=== PATIENT | female | born 1950 | race Caucasian/White ===

== ENCOUNTER 2017-03-25 05:32 | Inpatient (IN) | payer MEDICARE, BC ==
[~2017-03-25] VITALS: Ht 172.7 cm; Wt 100.6 kg
[2017-03-25] VITALS (26 sets, daily range): BP systolic 120–178; BP diastolic 20–81; PULSE 84–104; RESP 9–20; Ht 172.7 cm; Wt 100.6 kg
[~2017-03-25 05:32] MED LIST: ALPH200T2 PO; ASCO500C7 PO; BIOT300T6 PO; BIOT800T PO; BORON; CHOL400T29 PO; CYAN500T46 PO; FOLATE; MOLYBDENUM; OMEG-135 PO; PYRI50TA80 PO; THI100 PO; UBID100C24 PO; VALA500T32 PO; VITA1CAP38 PO; VITA2500 PO; VITAMIN B2; VITAMIN B3; ZINC15TA2 PO; ZINC50TA2 PO; [UNRECOGNIZED DRUG - CODE]; [UNRECOGNIZED DRUG - CODE] PO; [UNRECOGNIZED DRUG - CODE] PO; [UNRECOGNIZED DRUG - CODE] PO; [UNRECOGNIZED DRUG - CODE] PO; [UNRECOGNIZED DRUG - CODE] PO; [UNRECOGNIZED DRUG - OTHER]; [UNRECOGNIZED DRUG - OTHER]; [UNRECOGNIZED DRUG - OTHER]; [UNRECOGNIZED DRUG - OTHER]; [UNRECOGNIZED DRUG - OTHER]; [UNRECOGNIZED DRUG - REMARK]
[2017-03-25] MEDS ORDERED: ROCURONIUM 50 MG INJ ONE (06:20)
[2017-03-25] MEDS ORDERED: GLYCOPYRROLATE 0.4 MG INJ ONE (06:20)
[2017-03-25] MEDS ORDERED: PROPOFOL 20 ML ONE (06:20)
[2017-03-25] MEDS ORDERED: LIDOCAINE 2% (SDV) 5 ML INJ ONE (06:20)
[2017-03-25] MEDS ORDERED: NEOSTIGMINE 3 MG/3 ML SYRINGE ONE (06:20)
[2017-03-25] MEDS ORDERED: MIDAZOLAM 1 MG/ML 2 ML INJ ONE (06:25)
[2017-03-25] MEDS ORDERED: FENTAnyl 50 MCG/ML VIAL ONE (06:25)
[2017-03-25] MEDS ORDERED: ONDANSETRON 4 MG INJ ONE (06:25)
[2017-03-25] MEDS ORDERED: DEXAMETHASONE 4 MG/ML 1 ML INJ ONE (06:25)
[2017-03-25] MEDS ORDERED: ONDANSETRON 4 MG INJ IV PRN ×2 (06:30→09:30)
[2017-03-25] MEDS ORDERED: LABETALOL HCL 20MG INJ IV PRN (06:30)
[2017-03-25] MEDS ORDERED: CEFAZOLIN 2 GM/50 ML (PMX) 50 ML IVPB SCH (06:30)
[2017-03-25] MEDS ORDERED: OXYCODONE/ACETAMINOPHEN (5/325) TAB PO PRN ×2 (06:30)
[2017-03-25] MEDS ORDERED: ATROPINE 1 MG/10 ML SYRINGE IV PRN (06:30)
[2017-03-25] MEDS ORDERED: EPHEDrine SULFATE 50 MG/5 ML SYG IV PRN (06:30)
[2017-03-25] MEDS ORDERED: LACTATED RINGER'S 1,000 ML IV* SCH (06:30)
[2017-03-25] MEDS ORDERED: MEPERIDINE 25 MG INJ IV PRN (06:30)
[2017-03-25] MEDS ORDERED: HYDROmorphONE (0.2 MG/ML) 10ML SYG IV PRN ×3 (06:30)
[2017-03-25] MEDS ORDERED: DIPHENHYDRAMINE 50 MG INJ IV PRN (06:30)
[2017-03-25] MEDS ORDERED: morphine (1 MG/ML) 10ML SYRINGE IV PRN ×3 (06:30)
[2017-03-25] MEDS ORDERED: MIDAZOLAM 1 MG/ML 2 ML INJ IV PRN (06:30)
[2017-03-25] MEDS ORDERED: hydrALAzine 20 MG INJ IV PRN (06:30)
[2017-03-25] MEDS ORDERED: FENTAnyl 50 MCG/ML VIAL IV PRN (06:30)
[2017-03-25] MEDS ORDERED: CEFAZOLIN 2 GM/50 ML (PMX) 50 ML IVPB ONE ×2 (06:43→06:45)
--- NOTE | 2017-03-25 06:51 | HPN ---
Date/Time of Note Date/Time of Note DATE: 03/25/17 TIME: 06:50 Interval H&P Admission Note Pt. seen H&P reviewed: No system changes BRITNI RUCKER MD Mar 25, 2017 06:51
[2017-03-25] MEDS ORDERED: HYDR5TAB2 PO (07:21)
[2017-03-25] MEDS ORDERED: LISI10TA2 PO (07:21)
[2017-03-25] MEDS ORDERED: [UNRECOGNIZED DRUG - OTHER] (07:21)
[2017-03-25] MEDS ORDERED: PRAS25CA6 PO (07:21)
[2017-03-25] MEDS ORDERED: VALA500T PO (07:21)
[2017-03-25] MEDS ORDERED: [UNRECOGNIZED DRUG - OTHER] PO (07:21)
[2017-03-25] MEDS ORDERED: THYR97.5 PO (07:21)
[2017-03-25] MEDS ORDERED: PROG100C5 PO (07:21)
[2017-03-25] MEDS ORDERED: CHOL500010 PO (07:24)
[2017-03-25] MEDS ORDERED: BIOT25004 PO (07:24)
[2017-03-25] MEDS ORDERED: MAGN500C PO (07:24)
[2017-03-25] MEDS ORDERED: MULT-88 PO (07:24)
[2017-03-25] MEDS ORDERED: CALC600T5 PO (07:24)
[2017-03-25] MEDS ORDERED: hydrALAzine 20 MG INJ ONE (07:46)
[2017-03-25] MEDS ORDERED: LABETALOL HCL 20MG INJ ONE (07:56)
[2017-03-25] MEDS ORDERED: GELATIN SIZE 100 SPONGE ONE (08:12)
[2017-03-25] MEDS ORDERED: POLYMYXIN/BACITRACIN 1L IRRIG ONE (08:13)
[2017-03-25] MEDS ORDERED: BUPIVACAINE 0.25% (MPF) 30 ML INJ ONE (08:13)
[2017-03-25] MEDS ORDERED: THROMBIN 5000 UNIT VIAL ONE (08:13)
[2017-03-25] MEDS ORDERED: FUROSEMIDE 20 MG INJ ONE (09:04)
[2017-03-25] MEDS ORDERED: FLUMAZENIL 0.5 MG INJ ONE (09:18)
[2017-03-25] MEDS ORDERED: NALOXONE (0.4 MG/ML) INJ IV PRN (09:30)
[2017-03-25] MEDS ORDERED: TRIMETHOBENZAMIDE 100 MG/ML VIAL IM PRN (09:30)
[2017-03-25] MEDS ORDERED: PROCHLORPERAZINE 10 MG TAB PO PRN (09:30)
[2017-03-25] MEDS ORDERED: ZOLPIDEM 5 MG TAB PO PRN (09:30)
[2017-03-25] MEDS ORDERED: DIAZEPAM 5 MG TAB PO PRN (09:30)
[2017-03-25] MEDS ORDERED: DIAZEPAM 5 MG/ML SYG IM PRN (09:30)
[2017-03-25] MEDS ORDERED: NACL 0.9% 3 ML SYG IV SCH (09:30)
[2017-03-25] MEDS ORDERED: ACETAMINOPHEN 325 MG TAB PO PRN (09:30)
[2017-03-25] MEDS ORDERED: HYDROmorphONE 0.2 MG/ML PCA IV SCH (09:30)
[2017-03-25] MEDS ORDERED: AL HYDROX/MG HYDROX/SIMETH 30 ML CUP PO PRN (09:30)
[2017-03-25] MEDS ORDERED: traMADol 50 MG TAB PO PRN (09:30)
[2017-03-25] MEDS ORDERED: DIPHENHYDRAMINE 50 MG CAP PO PRN (09:30)
[2017-03-25] MEDS ORDERED: BETHANECHOL 25 MG TAB PO PRN (09:30)
--- NOTE | 2017-03-25 09:39 | SIPON ---
Date/Time of Note Date/Time of Note DATE: 03/25/17 TIME: 09:35 Operative Report Preoperative Diagnosis Spinal stenosis L4-5 Postoperative Diagnosis Same Operation/Procedure Performed Central decompressive laminectomy at L4 Partial central decompressive laminectomy at L5 (superiorly) Baxano transforaminal root decompression L5 on the left Medial facetectomy and foraminotomy L4-5 bilaterally Cosmetic wound closure (5 cm) Lateral localizing lumbar radiographs (2) Intraoperative nerve monitoring (90 minutes) Surgeon see signature line surgery assistant Christine Collado PA-C Anesthesia: general Estimated blood loss: 10 - 50 ml's Transfusion Required none Specimen Spinous process of L4 Grafts/Implants none Complications none BRITNI RUCKER MD Mar 25, 2017 09:39
[2017-03-25] MEDS ORDERED: HYDROmorphONE 0.2 MG/ML PCA ONE (09:47)
--- NOTE | 2017-03-25 09:49 | RADRPT ---
PROCEDURE: Lumbar spine x-ray intraoperative CLINICAL INDICATION: Lumbar spine surgical procedure TECHNIQUE: Single lateral intraoperative x-ray view of the lumbar spine is available for review. Procedure was performed as a cross-table lateral view on the surgical table. COMPARISON: None available FINDINGS: Posterior approach needles are seen directed at the L3 level and L4-5 disk space level. Single imag e was obtained for localization during the procedure in progress. IMPRESSION: 1. Intraoperative x-rays for localization during lumbar spinal surgical procedure. RPTAT: UU .Johnnie Simms MD, Date Time Electronically viewed and signed by .Johnnie Simms MD, MD on 03/25/2017 09:49 .N/
--- NOTE | 2017-03-25 09:51 | RADRPT ---
PROCEDURE: Lumbar spine x-ray intraoperative CLINICAL INDICATION: Lumbar spine surgical procedure TECHNIQUE: Single lateral intraoperative x-ray view of the lumbar spine is available for review. Procedure was performed as a cross-table lateral view on the surgical table. COMPARISON: None available FINDINGS: There is straightening of normal lumbar lordosis. There is 8 mm anterolisthesis at L4-5. Posterior approach surgical instrument is seen directed at the L4-5 disk space level. Single image was obtained for localization during the procedure in progress. IMPRESSION: 1. Intraoperative x-rays for localization during lumbar spinal surgical procedure. RPTAT: UU .Johnnie Simms MD, Date Time Electronically viewed and signed by .Johnnie Simms MD, MD on 03/25/2017 09:51 .N/
[2017-03-25] MEDS: CEPASTAT LOZENGE MT PRN ×2 (10:43→12:02)
[2017-03-25] MEDS: DEXTROSE 5%-0.45% NACL 1,000 ML IV SCH ×3 (11:16→23:13)
--- NOTE | 2017-03-25 11:35 | OPR ---
DATE OF OPERATION: 03/25/2017 PREOPERATIVE DIAGNOSIS: Lumbar spinal stenosis at L4 (moderate) and foraminal stenosis at L5-S1 on the left. POSTOPERATIVE DIAGNOSIS: Lumbar spinal stenosis at L4 (moderate) and foraminal stenosis at L5-S1 on the left. OPERATION PROCEDURES: 1. Central decompressive laminectomy at L4. 2. Partial central decompression laminectomy at L5 (superiorly). 3. Baxano transforaminal root decompression L5 on the left. 4. Medial facetectomy and foraminotomy, L4-L5 bilaterally. 5. Cosmetic wound closure (5 cm). 6. Lateral localized lumbar radiographs (2). 7. Intraoperative nerve monitoring (90 minutes). SURGEON: Fausto Asif MD PLATE SHEAR OPERATOR: Elena Collado PA-C ANESTHESIA: General endotracheal. ANESTHESIOLOGIST: Kirk Laureano MD ESTIMATED BLOOD LOSS: 25 mL, none replaced. DRAINS: Two medium Hemovac drains employed. COMPLICATIONS: None. PERTINENT HISTORY AND PHYSICAL: This is a 66-year-old female with severe back and lower extremity c omplaints, left greater than right, which have been unrelieved by conservative management. She has undergone a number of diagnostic studies including an MRI of the lumbar spine, which demonstrated a moderate lateral recess stenosis at L4-L5 with foraminal stenosis L5-S1 on the left. Treatment opti ons were discussed with the patient, who elected to proceed with surgery. OPERATIVE FINDINGS AT SURGERY: Moderately severe lateral recess stenosis at L4 and foraminal stenos is at L5-S1 on the left was confirmed. The baseline intraoperative nerve monitoring revealed a decr ease in the L4 potential on the left of 30%, the L4 potential on the right of 40%, the L5 potential on the left of 20%, the L5 potential on the right of 40%, the S1 potential on the left of 40% and th e S1 potential on the right of 20%. These all returned to normal at the completion of surgery. OPERATIVE PROCEDURE: With the patient in supine position after satisfactory induction of general en dotracheal anesthesia by Dr. Laureano, the patient was turned to the prone kneeling position on the [facility] frame. All pressure points were carefully padded. The back was prepped and draped in usual sterile fashion. Athrombic pumps were applied to the legs below the knees to prevent venous stasis during and after the procedure. An indwelling Ryder catheter was also placed preoperatively to faci litate bladder drainage during and after the procedure. Two spinal needles were placed next to what was felt to be the L4 and L5 spinous processes, lateral roentgenogram was taken to confirm anatomic localization. A 5 cm incision then carried out midline over the spinous process of L4 through skin and subcutaneous tissue to the deep fascia. Superficial retractors were placed and hemostasis secu red with electrocautery. Throughout the procedure, copious amounts of antibacterial irrigating solu tion were used to periodically irrigate the wound, 0.25% Marcaine without epinephrine was used to i nfiltrate the skin margins for postoperative analgesia. The fascia was incised in midline with a hot knife and a bilateral subperiosteal dissection carried out at L4-L5. Deep retractors were placed and deep hemostasis secured with electrocautery. A secon d intraoperative radiograph was taken with Sejal clamps placed in what was felt to be the spinous p rocess of L4. This was confirmed with second x-ray. A central decompressive laminectomy at L4 was then carried out using a Ben right-angle bone rongeur, Leksell rongeur, Kerrison punches and cur ettes. Ligamentum flavum was incised with sharp dissection. The operating microscope was moved int o place. A medial facetectomy and foraminotomy at L4-L5 was then carried out using small hand osteo tome, mallet, Kerrison punches and curettes. The L5 root was traced down to the L5-S1 foramen, whic h was moderately to severely stenotic. The Baxano instrumentation was brought onto the field. The Ipsi probe was placed into the L5 foramen, and the guidewire passed in the usual fashion. The neuro monitor was then placed into the foramen to isolate the exiting L5 nerve root. With this having be en assured, a 7.5 mm Baxano rasp was attached to the guidewire and placed into the foramen. Multipl e reciprocations were carried out to enlarge the posterior aspect of the foramen. The instrumentati on was withdrawn. The foramen was flooded with 20 mL of irrigation solution, and hemostasis secured with bipolar electrocautery on low setting. The anesthesiologist was asked to perform a Valsalva maneuver at 40 mmHg and no spinal fluid leakage was noted. The wound was then copiously irrigated with antibacterial irrigating solution and close d over 2 medium Hemovac drains, one below the fascia and one above the fascia using #1 Vicryl Strata fix sutures on the deep paralumbar musculature and deep fascia of back, 2-0 Stratafix sutures on the subcuticular tissue, and a 4-0 Vicryl subcuticular cosmetic closing suture on the skin. Dermabond and sterile compressive dressings were applied. She tolerated the procedure well, was then turned t o the supine position onto her bed and extubated by Dr. Laureano. She was transported to the recovery room in satisfactory condition. At the completion of the procedure, sponge, instrument, and needle counts were all correct. NEED FOR BEVELER: During this spinal surgical procedure, my insurance assistant was used to retrac t and protect the spinal nerves and dural sac. My insurance assistant also employed the suction catheters to e vacuate blood from the surgical field to improve visualization of the neural structures. The assista nt was medically necessary to facilitate the completion of the surgery in a safe and expeditious man ner. State of [place] regulations, as well as hospital bylaws, preclude the use of non-licensed [facility] care personnel such as operating room technicians, to perform these functions. Throughout the procedure, neural monitoring was carried out by [employer], including EMG, SSEP and MEP monitoring of the L3, L4, L5 and S1 nerve roots bilaterally along with spinal cord potentia ls. These were interpreted by a neurologist employed by [employer]. Dictated By: FAUSTO ASIF MD TM/NTS Conf#: [id number] DID#: [id number] CC: JEREMIAH OROZCO MD; ELENA VOSS;*EndCC*
[2017-03-25] MEDS: CEFAZOLIN 1 GM/50 ML (PMX) 50 ML IVPB SCH ×3 (12:05→23:13)
[2017-03-25] MEDS: LISINOPRIL 10 MG TAB PO SCH (14:00)
[2017-03-25] MEDS ORDERED: LISINOPRIL 10 MG TAB PO SCH (14:00)
--- NOTE | 2017-03-25 14:49 | CONS ---
DATE OF ADMISSION: 03/25/2017 DATE OF CONSULTATION: 03/25/2017 TYPE OF CONSULTATION: Medical. Thank you, Dr. Asif, for asking me to participate in medical management of this patient. REASON FOR CONSULTATION: To manage the patient's hypertension, hypothyroidism, and endocrinologic m edications. HISTORY OF PRESENT ILLNESS: This 66-year-old female is now postop a lumbar spine surgery today by Flako Asif. The patient apparently has had low back pain for years. She saw Dr. Asif preopera tively. She has had epidurals in the past and has failed conservative medical management. The shravan ent did have an acute left L5 radiculopathy which was diagnosed preoperatively. She also had a left L4 sensory dysfunction. This was found on electrodiagnostic evaluation preoperatively by Dr. Moore . The patient is now postop a lumbar central decompressive laminectomy at L4, partial central decom pressive laminectomy at L5, a medical facetectomy and foraminotomy at L4-L5 bilaterally. The patie nt is awake and alert. She does complain of severe mouth dryness. PAST MEDICAL HISTORY: Remarkable for the following: Hypertension, hypothyroidism, history of Clost ridium difficile colitis in 10/2016 after taking multiple rounds of antibiotics. History of urinary tract infection in July 2016. 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 PAST SURGICAL HISTORY: Tonsillectomy, tubal ligation and right knee arthroscopy in 2010. FAMILY HISTORY: Father had an TX. SOCIAL HISTORY: She does not drink alcohol, does not smoke. CURRENT MEDICATIONS: Include the followin. Valacyclovir 500 mg a day. 2. Lisinopril 10 mg a day. 3. Calcium carbonate 600 mg a day. 4. Zinc 50 mg a day. 5. Magnesium oxide 500 mg a day. 6. Hydrocortisone 5 mg a day. 7. Progesterone 100 mg at bedtime. 8. Nature-Throid daily. 9. Vitamins Biotin. 10. Vitamin D3. 11. Multivitamin. 12. DHEA. 13. Chromium. 14. Pregnenolone. PHYSICAL EXAMINATION: GENERAL: At this time reveals a well-developed female in no apparent distress. VITAL SIGNS: Temperature 98, pulse of 92, respirations 16, blood pressure 121/62, pulse ox 96% on 2 liter nasal cannula. HEENT: Head normocephalic. Eyes: Extraocular muscles intact. NOSE AND MOUTH: Normal. NECK: Supple. No neck vein distention. LUNGS: Clear to auscultation. HEART: Regular rhythm. No murmurs, gallops or rubs. ABDOMEN: Soft, nontender. EXTREMITIES: No peripheral edema. IMPRESSION: The patient is stable after surgery today. Her blood pressure is normal. She is awake and alert. The patient does have a severely dry mouth. She has been given a lollipop to suck on, which hopefully will help. I will manage her hypertension, hypothyroidism and endocrinologic medica tions. PLAN: 1. Resume some routine medications. 2. Check labs in the morning. 3. Postop lumbar spine surgery protocol. 4. I will follow the patient along with you medically. Dictated By: JEREMIAH OROZCO MD ND/NTS Conf#: [id number] DID#: [id number] CC: KRISTY MOORE MD; BRITNI ASIF MD;*End*
[2017-03-25] MEDS: HYDROCORTISONE 5 MG TAB PO SCH (15:58)
[2017-03-25] MEDS: VALACYCLOVIR 500 MG TAB PO SCH (15:58)
[2017-03-25] MEDS: RANITIDINE 150 MG TAB PO SCH (20:51)
[2017-03-25] MEDS ORDERED: PATIENT'S OWN MEDICATION PO SCH (21:00)
[2017-03-25] MEDS ORDERED: PROGESTERONE 100 MG CAP PO SCH (21:00)
[2017-03-26] MEDS: DEXTROSE 5%-0.45% NACL 1,000 ML IV SCH (05:24)
[2017-03-26 05:50] VITALS: BP 122/64; PULSE 79; RESP 18
[2017-03-26] MEDS: CEFAZOLIN 1 GM/50 ML (PMX) 50 ML IVPB SCH (06:20)
--- NOTE | 2017-03-26 07:10 | PN ---
Date/Time of Note Date/Time of Note DATE: 03/26/17 TIME: 07:02 Assessment/Plan Lines/Catheters IV Catheter Type (from Nrsg): Saline Lock Ryder in Place (from Nrsg): Yes Subjective 24 Hr Interval Summary Patient is postop day #1 following a decompressive laminectomy at L4 and the upper part of L5. She is resting comfortably in bed. Neurovascular structures are intact distally. She refused blood draws this morning, and there are no a.m. labs available at this time. There being drawn at this moment. Hemovac output was 30 cc and the Hemovac was discontinued. Her wound is clean and dry and was redressed. She will be mobilized as tolerated by physical therapy, and discharged home when cleared by physical therapy. Strict discharge precautions and instructions as well as follow-up arrangements have been given. Exam/Review of Systems Vital Signs Vitals Vital Signs Date Time Temp Pulse Resp B/P Pulse Ox O2 Delivery O2 Flow Rate FiO2 03/26/17 05:50 98.1 79 18 122/64 97 Room Air 2.0 Intake and Output 03/25/17 03/25/17 03/26/17 15:00 23:00 07:00 Intake Total 1870 ml 1270 ml 1880 ml Output Total 1365 ml 760 ml 2030 ml Balance 505 ml 510 ml -150 ml BRITNI RUCKER MD Mar 26, 2017 07:10
[2017-03-26 07:29] LABS: HEMATOCRIT 38.9 % (37.0-47.0); HEMOGLOBIN 13.2 g/dl (12.0-16.0)
[2017-03-26 07:47] LABS: CREATININE 0.71 mg/dl (0.44-1.00); POTASSIUM 4.2 mmol/L (3.5-5.1)
[2017-03-26] MEDS ORDERED: BETHANECHOL 25 MG TAB PO PRN (08:00)
--- NOTE | 2017-03-26 08:15 | CONS ---
Date/Time of Note Date/Time of Note DATE: 03/26/17 TIME: 08:12 Assessment/Plan Assessment/Plan Chief Complaint/Hosp Course 1. She is 1 day post op a lumbar spine surgery . She is feeling better . BP is controlled and she has been afebrile . She is ready to start PT . Labs are acceptable . Problems: Consultation Date/Type/Reason Admit Date/Time Mar 25, 2017 at 05:32 Initial Consult Date 24 HR Interval Summary Free Text/Dictation she is feeling better today and is ready to start PT . Constitutional: improved, no complaints Exam/Review of Systems Vital Signs Vitals Vital Signs Date Time Temp Pulse Resp B/P Pulse Ox O2 Delivery O2 Flow Rate FiO2 03/26/17 05:50 98.1 79 18 122/64 97 Room Air 2.0 Intake and Output 03/25/17 03/25/17 03/26/17 15:00 23:00 07:00 Intake Total 1870 ml 1270 ml 1880 ml Output Total 1365 ml 760 ml 2030 ml Balance 505 ml 510 ml -150 ml Exam Constitutional: alert, oriented, well developed Neck: non-tender, supple Respiratory: clear to auscultation, normal air movement Cardiovascular: regular rate and rhythm Gastrointestinal: non-tender, soft Musculoskeletal: nl extremities to inspection Results Result Diagram: 03/26/17 0707 03/26/17 0707 Results 24 hrs Laboratory Tests Test 03/26/17 07:07 Hemoglobin 13.2 Hematocrit 38.9 Sodium Level 137 Potassium Level 4.2 Chloride Level 99 Carbon Dioxide Level 28 Anion Gap 14 Blood Urea Nitrogen 12 Creatinine 0.71 Glucose Level 129 Calcium Level 9.0 Medications Medications Current Medications Dextrose/Sodium Chloride (D5-1/2ns) 1,000 ml @ 100 mls/hr Q10H IV Last administered on 03/25/17t 23:13; Admin Dose 100 MLS/HR; Start 03/25/17 at 09: 24 Zolpidem Tartrate (Ambien) 5 mg HS PRN PO INSOMNIA; Start 03/25/17 at 09:30 Prochlorperazine (Compazine) 10 mg Q4H PRN PO NAUSEA AND/OR VOMITING; Start at 09:30 Trimethobenzamide HCl (Tigan) 200 mg Q4H PRN IM NAUSEA AND/OR VOMITING; Start 03/25/17 at 09:30 Ondansetron HCl (Zofran Inj) 4 mg Q6H PRN IV NAUSEA AND/OR VOMITING; Start at 09:30 Al Hydrox/Mg Hydrox/Simethicone (Mag-Al Plus) 15 ml Q4H PRN PO CONSTIPATION; Start 03/25/17 at 09:30 Docusate Sodium (Colace) 100 mg BID PO ; Start 03/26/17 at 09:00 Acetaminophen (Tylenol Tab) 650 mg Q4H PRN PO TEMP GREATER THAN 101F OR LARA Last administered on 03/25/17 20:55; Admin Dose 650 MG; Start 03/25/17 at 09: 30 Ascorbic Acid (Vitamin C) 1,000 mg BID PO ; Start 03/26/17 at 09:00 Ferrous Sulfate (Ferrous Sulfate (Ec)) 325 mg TID PO ; Start 03/26/17 at 09:00 Ranitidine HCl (Zantac) 150 mg BID PO Last administered on 03/25/17 20:51; Admin Dose 150 MG; Start 03/25/17 at 21:00 Diazepam (Valium) 5 mg Q4H PRN PO MUSCLE SPASMS; Start 03/25/17 at 09:30 Diazepam (Valium) 5 mg Q4H PRN IM MUSCLE SPASMS; Start 03/25/17 at 09:30 Phenol (Cepastat Lozenge) 1 lozenge PRN PRN MT SORE THROAT Last administered on 03/25/17 12:02; Admin Dose 1 LOZENGE; Start 03/25/17 at 09:30 Diphenhydramine HCl (Benadryl) 50 mg Q6H PRN PO PRURITUS; Start 03/25/17 at 09 :30 Hydromorphone HCl (Dilaudid CABLE MOCK UP ASSEMBLER) Q4PCA IV Last administered on 03/25/17 09: 53; Admin Dose 6 MG; Start 03/25/17 at 09:30 Naloxone HCl (Narcan) 0.2 mg Q2M PRN IV RR 8 BREATHS/MIN OR LESS; Start at 09:30 Tramadol HCl (Ultram) 100 mg Q6H PRN PO Pain 6-10; Start 03/25/17 at 09:30 Lisinopril (Zestril) 10 mg DAILY PO Last administered on 03/25/17 14:00; Admin Dose 10 MG; Start 03/25/17 at 14:00 Hydrocortisone (Cortef) 5 mg DAILY PO Last administered on 03/25/17 15:58; Admin Dose 5 MG; Start 03/25/17 at 14:00 Lisinopril (Zestril) 10 mg DAILY PO ; Start 03/25/17 at 14:00 Progesterone (Prometrium) 100 mg HS PO Last administered on 03/25/17 20:50; Admin Dose 100 MG; Start 03/25/17 at 21:00 Valacyclovir HCl (Valtrex) 500 mg DAILY PO Last administered on 03/25/17 15: 58; Admin Dose 500 MG; Start 03/25/17 at 14:00 Patient Own Medication 1 ea DAILY PO ; Start 03/25/17 at 21:00; Status UNV Bethanechol Chloride (Urecholine) 25 mg PRN PRN PO UNABLE TO VOID; Start 03/26 at 08:00 JEREMIAH OROZCO MD Mar 26, 2017 08:15
[2017-03-26 08:38] VITALS: BP 148/70; RESP 18
[2017-03-26] MEDS: VALACYCLOVIR 500 MG TAB PO SCH (08:42)
[2017-03-26] MEDS: FERROUS SULFATE (EC) 325 MG TAB PO SCH ×2 (08:42→13:00)
[2017-03-26] MEDS: traMADol 50 MG TAB PO PRN ×2 (08:43→14:28)
[2017-03-26] MEDS: RANITIDINE 150 MG TAB PO SCH (08:45)
[2017-03-26] MEDS: LISINOPRIL 10 MG TAB PO SCH (08:45)
[2017-03-26] MEDS ORDERED: DOCUSATE SODIUM 100 MG CAP PO SCH (09:00)
[2017-03-26] MEDS ORDERED: ASCORBIC ACID 500 MG TAB PO SCH (09:00)
[2017-03-26] MEDS: HYDROCORTISONE 5 MG TAB PO SCH (09:13)
[2017-03-26 13:29] LABS: ADD UMIC YES; UR ASCORBIC ACID NEGATIVE (NEGATIVE); UR BILIRUBIN (Dip) NEGATIVE (NEGATIVE); UR BLOOD (Dip) 1+ mg/dL (NEGATIVE); UR CLARITY CLEAR (CLEAR); UR COLOR STRAW (YELLOW); UR GLUCOSE (Dip) NEGATIVE (NEGATIVE); UR KETONES (Dip) NEGATIVE (NEGATIVE); UR LEUKOCYTE ESTERASE (Dip) NEGATIVE Leu/ul (NEGATIVE); UR NITRITE (Dip) NEGATIVE (NEGATIVE); UR RBC 1 /HPF (0-5); UR SPECIFIC GRAVITY (Dip) 1.005 (1.003-1.030); UR TOTAL PROTEIN (Dip) NEGATIVE (NEGATIVE); UR UROBILINOGEN (Dip) NEGATIVE (NEGATIVE)
== END 2017-03-26 18:25 | disposition home or self-care (01) | DRG 517 ==
LOC: REC 05:32 → EDSTATUS 10:00 → MS1 10:41
PROVIDERS: ADMIT Orthopaedic Surgery; ATTEND Orthopaedic Surgery
PROC: 01NB0ZZ Release Lumbar Nerve, Open Approach (ICD-10-PCS; principal; 2017-03-25 07:00)
DX: M48.061 Spinal stenosis, lumbar region without neurogenic claudication (principal); I10 Essential (primary) hypertension; M48.07 Spinal stenosis, lumbosacral region; E03.9 Hypothyroidism, unspecified
CPT/HCPCS: 72020; 80048; 81001; 85014; 85018; 86850; 86900; 86901; 86920; 87086; 88304; 88311; 97116; 97163; 97530; J1940; J0360; J0690; J1100; J1170; J1200; J2175; J2250; J2405; J2710; J3010; J7042; J7120